=== PATIENT | female | born 1990 ===

== ENCOUNTER 2018-06-24 08:08 | Emergency (ER) | payer OTHER ==
[~2018-06-24] VITALS: Ht 165.1 cm; Wt 54.5 kg
[~2018-06-24 08:08] MED LIST: CIPRO 500MG TA500 MG PO; FLAGYL500 MG PO; MOTRIN 800800 MG/TAB PO; PERCOCET 325 MG1 TA2 PO; PRENATAL1 TA1 PO; ZOFRAN ODT4 MG PO; ZOLOFT 100MG100 MG PO
[2018-06-24 08:09] VITALS: TEMP 98.3
[2018-06-24] MEDS ORDERED: BRINTELLIX20 (08:12)
[2018-06-24 08:50] LABS: BASO % 0.6 % (0.0-2.0); EOS # 0.1 (0.0-0.7); GRAN # 1.6 (1.4-6.5); GRAN % 46.6 % (42.2-75.2); HEMATOCRIT 38.8 % (37.0-47.0); HEMOGLOBIN 13.7 g/dl (12.5-16.0); LYMPH # 1.3 (1.2-3.4); LYMPH % 39.6 % (20.0-51.0); MEAN CELL VOLUME 84 fl (80.0-100.0); MEAN CORPUSCULAR HEMOGLOBIN 30 pg (27.0-31.0); MEAN CORPUSCULAR HGB CONC 35 g/dl (33.0-37.0); MEAN PLATELET VOLUME 10.8 fl (7.4-10.4); MONO # 0.3 (0.1-0.6); MONO % 10.2 % (1.7-9.3); PLATELET COUNT 165 K/mm3 (130-400); RED BLOOD COUNT 4.61 M/mm3 (4.10-5.30); REDCELL DISTRIBUTION WIDTH-CV 11.1 % (11.5-14.5)
[2018-06-24 08:58] LABS: CALCIUM 9.3 mg/dL (8.4-10.2); CREATININE, serum 0.7 mg/dL (0.52-1.25); POTASSIUM 4.3 mmol/L (3.4-5.0)
[2018-06-24 09:28] LABS: TSH w REFLEX 2.27 uIU/mL (0.465-4.680)
[2018-06-24] MEDS ORDERED: SPRINTEC 35 MCG1 TAB PO (09:57)
[2018-06-24] MEDS ORDERED: PHENERGAN 25 TA25 MG PO (09:57)
[2018-06-24 10:26] VITALS: BP 120/86; PULSE 82
== END 2018-06-24 10:27 | disposition home or self-care (01) ==
LOC: COL.ER 08:08
PROVIDERS: Emergency Medicine
DX: N93.8 Other specified abnormal uterine and vaginal bleeding (principal)